=== PATIENT | male | born 1955 | race Caucasian/White ===

== ENCOUNTER → 2021-01-20 07:27 | Outpatient (CLI) | payer BC, SELFPAY ==
[2021-01-20 09:54] LABS: Cholesterol 219 mg/dL (140-199); HDL Cholesterol 81 mg/dL (40-60); LDL Cholesterol Calculated 126 mg/dL (<100); Triglycerides 58 mg/dL (35-150)
[2021-01-20 10:24] LABS: Prostate Specific Antigen Scrn 2.91 ng/mL (0.1-4.0); TSH w/ Reflex to FT4 0.55 uIU/mL (0.47-4.68)
== END ==
PROVIDERS: PCP Student in an Organized Health Care Education/Training Program; Referring Provider Student in an Organized Health Care Education/Training Program; Visit Provider Student in an Organized Health Care Education/Training Program
DX: Z13.220 Encounter for screening for lipoid disorders (principal); E03.9 Hypothyroidism, unspecified; Z12.5 Encounter for screening for malignant neoplasm of prostate
CPT/HCPCS: 36415; 80061; 84443; G0103

== ENCOUNTER → 2022-05-12 08:15 | Outpatient (CLI) | payer BC, SELFPAY ==
[2022-05-12 11:42] LABS: Prostate Specific Antigen Scrn 4.22 ng/mL (0.1-4.0)
[2022-05-12 12:02] LABS: Hep C Virus Ab w/Reflex Quant NEGATIVE s/c (NEGATIVE)
== END ==
PROVIDERS: PCP Student in an Organized Health Care Education/Training Program; Referring Provider Student in an Organized Health Care Education/Training Program; Visit Provider Student in an Organized Health Care Education/Training Program
DX: Z12.5 Encounter for screening for malignant neoplasm of prostate (principal); Z11.59 Encounter for screening for other viral diseases; E03.9 Hypothyroidism, unspecified
CPT/HCPCS: 36415; 84443; 86803; G0103

== ENCOUNTER → 2023-05-24 11:08 | Outpatient (CLI) | payer BC, SELFPAY ==
--- NOTE | 2023-05-24 11:10 | DI.RAD.S_ITS ---
PROCEDURE: XR KNEE LT 3V INDICATIONS: Knee swelling TECHNIQUE: 3 views of the knee were acquired. COMPARISON: None. FINDINGS: Bones: No fractures or dislocations. No suspicious bony lesions. Moderate joint space narrowing with stippled meniscal calcification. No marginal osteophyte Soft tissues: Moderate joint effusion. No suspicious soft tissue calcifications. IMPRESSION: Chondrocalcinosis with moderate joint effusion joint space narrowing Approved by: Ras Singer M.D. on 05/24/2023 at 19:15
[2023-05-24 13:33] LABS: TSH w/ Reflex to FT4 0.73 uIU/mL (0.47-4.68)
== END ==
PROVIDERS: PCP Student in an Organized Health Care Education/Training Program; Referring Provider Student in an Organized Health Care Education/Training Program; Visit Provider Student in an Organized Health Care Education/Training Program
DX: M11.262 Other chondrocalcinosis, left knee (principal); M25.462 Effusion, left knee; Z13.29 Encounter for screening for other suspected endocrine disorder
CPT/HCPCS: 36415; 73562; 84443